=== PATIENT | female | born 1980 | race Caucasian/White ===

== ENCOUNTER 2019-03-21 19:23 | Emergency (ER) | payer BC ==
[~2019-03-21] VITALS: Ht 160 cm; Wt 69.5 kg
[2019-03-21 19:34] VITALS: BP 109/68
[2019-03-21] MEDS ORDERED: RITALIN10 MG PO (19:47)
[2019-03-21 21:33] VITALS: PULSE 58
== END 2019-03-21 21:35 | disposition home or self-care (01) ==
LOC: COL.ER 19:23
DX: L76.22 Postprocedural hemorrhage of skin and subcutaneous tissue following other procedure (principal); Z90.89 Acquired absence of other organs; Z88.2 Allergy status to sulfonamides